=== PATIENT | female | born 1960 | race Caucasian/White ===

== ENCOUNTER → 2021-06-08 | Outpatient (CLI) | payer MEDICARE ==
[~2021-06-08] MED LIST: BUMETANIDE2 MG PO; COUMADIN4 MG PO; COUMADIN5 MG PO; FOLIC ACID 1 MG1 MG PO; HUMALOG MI100 UNIT/3 SC; LANTUS100 UNIT/1 SC; LIPITOR TAB 2020 MG PO; LOPRESSOR50 MG PO; PRINIVIL10 MG PO; PROTONIX 20 MG20 MG PO; PROZAC40 MG PO; RISPERDAL0.5 MG PO; ZYLOPRIM 100 M100 MG PO
== END ==
LOC: HEART 5 08:27
DX: I20.8 Other forms of angina pectoris (principal); R06.02 Shortness of breath; I37.1 Nonrheumatic pulmonary valve insufficiency; Z95.2 Presence of prosthetic heart valve
CPT/HCPCS: 78452; 93306; A9502; J2785

== ENCOUNTER → 2021-06-29 | Day surgery (SDC) | payer MEDICARE | END | disposition home or self-care (01) | LOC: CATH 08:00 | DX: Z48.812 Encounter for surgical aftercare following surgery on the circulatory system (principal); R06.02 Shortness of breath; Z95.2 Presence of prosthetic heart valve; Z20.822 Contact with and (suspected) exposure to COVID-19; Z51.81 Encounter for therapeutic drug level monitoring; J30.9 Allergic rhinitis, unspecified; I11.0 Hypertensive heart disease with heart failure; I50.9 Heart failure, unspecified; F41.9 Anxiety disorder, unspecified; F31.9 Bipolar disorder, unspecified; R07.9 Chest pain, unspecified; I20.8 Other forms of angina pectoris; M10.9 Gout, unspecified; E78.00 Pure hypercholesterolemia, unspecified; N20.0 Calculus of kidney; E66.9 Obesity, unspecified; G47.33 Obstructive sleep apnea (adult) (pediatric); R00.2 Palpitations; E11.9 Type 2 diabetes mellitus without complications; Z79.01 Long term (current) use of anticoagulants; Z87.891 Personal history of nicotine dependence | CPT/HCPCS: 82962; 85610; 93005; J1200; J2250; J2310; J3010; J7040; U0002 ==

== ENCOUNTER → 2021-09-02 | Outpatient (CLI) | payer MEDICARE | LOC: HEART 5 16:06 | DX: R06.02 Shortness of breath (principal); J84.10 Pulmonary fibrosis, unspecified | CPT/HCPCS: 94060; 94729 ==